=== PATIENT | male | born 2000 | race Caucasian/White ===

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

== ENCOUNTER 2021-03-19 14:57 | Emergency (ER) | payer SELFPAY ==
[~2021-03-19] VITALS: Ht 180.3 cm; Wt 68.2 kg
[2021-03-19 15:36] VITALS: BP 129/71; TEMP 97.6
[2021-03-19 16:31] VITALS: PULSE 60
== END 2021-03-19 16:31 | disposition home or self-care (01) ==
LOC: COL.ER 14:57
DX: R11.2 Nausea with vomiting, unspecified (principal)

== ENCOUNTER 2023-06-26 17:14 | Emergency (ER) | payer SELFPAY ==
[~2023-06-26] VITALS: Ht 177.8 cm; Wt 69.1 kg
[2023-06-26 17:19] VITALS: BP 121/79; TEMP 97.9
[2023-06-26 18:29] VITALS: PULSE 71
== END 2023-06-26 18:29 | disposition home or self-care (01) ==
LOC: COL.ER 17:14
DX: S52.121A Displaced fracture of head of right radius, initial encounter for closed fracture (principal); V00.131A Fall from skateboard, initial encounter; Y93.51 Activity, roller skating (inline) and skateboarding